=== PATIENT | male | born 1950 | race Caucasian/White ===

== ENCOUNTER 2025-10-09 11:17 | Observation (INO) ==
--- NOTE | 2025-09-01 09:53 | PAT Medication Instructions ---
Medication Instructions Date of Service September 01, 2025 Home Medications Medication Instructions Recorded acetaminophen 500 mg capsule 500 mg PO Q6H PRN pain 7 days #30 02/15/22 caps ipratropium 0.5 mg-albuterol 3 mg 3 ml inhalation Q6H PRN wheezing 12/12/24 (2.5 mg base)/3 mL nebulization #180 mL soln sildenafil 25 mg tablet 25 mg PO DAILY PRN sexual activity 08/24/25 #10 tabs acetaminophen 500 mg capsule 500 mg PO Q6H PRN pain aspirin 81 mg chewable tablet 81 mg PO QAM furosemide 40 mg tablet 40 mg PO DAILY PRN Fluid Retention ipratropium 0.5 mg-albuterol 3 mg (2.5 mg base)/3 mL nebulization soln 3 ml inhalation Q6H PRN wheezing cholecalciferol (vitamin D3) 50 mcg (2,000 unit) capsule 4,000 unit PO QAM metoprolol tartrate 25 mg tablet 25 mg PO QAM sildenafil 25 mg tablet 25 mg PO DAILY PRN sexual activity albuterol sulfate 90 mcg/actuation aerosol inhaler (Ventolin HFA) 1 - 2 puff inhalation UD PRN shortness of breath or wheezing atorvastatin 40 mg tablet 40 mg PO QAM omeprazole 20 mg capsule,delayed release 20 mg PO QAM umeclidinium 62.5 mcg-vilanterol 25 mcg/actuation powdr for inhalation (Anoro Ellipta) 1 inh inhalation QAM ASK your prescriber and surgeon aspirin 81 mg chewable tablet 81 mg PO QAM DO NOT take the morning of surgery furosemide 40 mg tablet 40 mg PO DAILY PRN Fluid Retention cholecalciferol (vitamin D3) 50 mcg (2,000 unit) capsule 4,000 unit PO QAM sildenafil 25 mg tablet 25 mg PO DAILY PRN sexual activity Take morning of surgery With a small sip of water, OTHERWISE NOTHING TO EAT OR DRINK AFTER MIDNIGHT: acetaminophen 500 mg capsule 500 mg PO Q6H PRN pain (if needed) ipratropium 0.5 mg-albuterol 3 mg (2.5 mg base)/3 mL nebulization soln 3 ml inhalation Q6H PRN wheezing (if needed) metoprolol tartrate 25 mg tablet 25 mg PO QAM albuterol sulfate 90 mcg/actuation aerosol inhaler (Ventolin HFA) 1 - 2 puff inhalation UD PRN shortness of breath or wheezing (use if needed; please bring rescue inhaler with you to hospital day of surgery if possible) atorvastatin 40 mg tablet 40 mg PO QAM omeprazole 20 mg capsule,delayed release 20 mg PO QAM umeclidinium 62.5 mcg-vilanterol 25 mcg/actuation powdr for inhalation (Anoro Ellipta) 1 inh inhalation QAM Take evening before surgery acetaminophen 500 mg capsule 500 mg PO Q6H PRN pain (if needed) furosemide 40 mg tablet 40 mg PO DAILY PRN Fluid Retention (if needed) ipratropium 0.5 mg-albuterol 3 mg (2.5 mg base)/3 mL nebulization soln 3 ml inhalation Q6H PRN wheezing (if needed) albuterol sulfate 90 mcg/actuation aerosol inhaler (Ventolin HFA) 1 - 2 puff inhalation UD PRN shortness of breath or wheezing (if needed) Other Notes If you have any questions please call us at [phone] or [phone] or [phone] or [phone]
--- NOTE | 2025-09-09 10:04 | Anesthesiology Consultation ---
Date of Service September 09, 2025 Assessment & Plan (1) Encounter for pre-operative examination: Plan - Case discussed in detail with Dr. Carrillo who advised patient is acceptable to proceed and nothing further is needed. - cardiology office visit 08/07/25: "...BP/pulse acceptable. EKG completed today has been personally reviewed and interpreted by myself. EKG reveals NSR, no acute ST changes. BB was advised to be reduced to Toprol XL 50 mg...wants to try Wegovy...denies any chest pain, pressure, tightness, heart rate has been much better controlled. Ran out of plavix recently, bruising and bleeding easily...chronic SOB with exertion unchanged...05/2025 zio monitor baseline NSR with average HR 60 bpm, rate PAC/PVCs noted, single episode SVT lasting 7 beats 4.4 seconds) with max HR 121 bpm, SVT appears irregular without clear P waves and may represent very brief episode of afib...03/2016 cath RRAA LVEF 55%...successful angioplasty and stenting of mid LAD w/MAYKEL via RRAA...paroxysmal atrial fibrillation s/p AF ablation 02/2025...recurrent falls s/p Watchman ASHLEY closure 05/2025...cardizem prn...avoid flecainide given hx of CAD...multivessel stenting RCA, LCX, LAD, last stent placed 2015, clinically stable with CCS class II DIAZ 2/2 COPD. No ischemia on NUC 04/2023...carotid disease-mild L ICA stenosis by 08/2024 doppler, will update doppler..." Patient states doppler has not yet been set-up. - Outpatient joint pathway: Per surgeon and patient, plan for outpatient joint program. Patient has well documented history of falls leading to Watchman device and d/c of anticoagulation by cardiology. He denies recent falls, but I am not comfortable with outpatient joint request given this history. I discussed this with patient and that I could further review with an anesthesiologist if he wanted, but he expresses he is comfortable with recommendation to remain overnight, denies questions or concerns. Surgeon's office and OR made aware. Chart Review Chart Review: Acceptable Risk for Surgery and Patient seen in Pre Admission Testing Teaching & Discussion Pre-Anesthesia Teaching/Discussion Notes: Instructed NPO after midnight before surgery, except medications with 15 cc of water. Medication instructions provided according to the PAT guidelines. History Surgery Operation Date: 10/09/25 13:00 Proposed Procedures p Right Reverse Total Shoulder Arthroplasty - Sunny Guardado DO Height/Weight Height: 5 ft 9 in Weight: 110.9 kg Allergies Allergy/AdvReac Type Severity Reaction Status Date / Time adhesive Allergy redness, Verified 09/01/25 08:53 irritation amoxicillin Allergy Rash Verified 09/01/25 08:21 metronidazole [From Flagyl] Allergy Rash Verified 09/01/25 08:53 Penicillins Allergy Rash Verified 09/01/25 08:21 Medications Home Medications Medication Instructions Recorded Confirmed Last Taken acetaminophen 500 mg capsule 500 mg PO Q6H PRN pain 7 days #30 02/15/22 09/01/25 Unknown caps aspirin 81 mg chewable tablet 81 mg PO QAM 03/12/24 09/01/25 Unknown furosemide 40 mg tablet 40 mg PO DAILY PRN Fluid Retention 09/18/24 09/01/25 Unknown ipratropium 0.5 mg-albuterol 3 mg 3 ml inhalation Q6H PRN wheezing 12/12/24 09/01/25 Unknown (2.5 mg base)/3 mL nebulization #180 mL soln cholecalciferol (vitamin D3) 50 4,000 unit PO QAM 05/28/25 09/01/25 Unknown mcg (2,000 unit) capsule metoprolol tartrate 25 mg tablet 25 mg PO QAM 05/28/25 09/01/25 Unknown sildenafil 25 mg tablet 25 mg PO DAILY PRN sexual activity 08/24/25 09/01/25 Unknown #10 tabs albuterol sulfate 90 mcg/actuation 1 - 2 puff inhalation UD PRN 09/01/25 09/01/25 Unknown aerosol inhaler (Ventolin HFA) shortness of breath or wheezing atorvastatin 40 mg tablet 40 mg PO QAM 09/01/25 09/01/25 Unknown omeprazole 20 mg capsule,delayed 20 mg PO QAM 09/01/25 09/01/25 Unknown release umeclidinium 62.5 mcg-vilanterol 1 inh inhalation QAM 09/01/25 09/01/25 Unknown 25 mcg/actuation powdr for inhalation (Anoro Ellipta) Past Medical History Medical History (Updated 09/09/25 @ 10:18 by Jyotsna Fonseca PA-C) At[facility] f[facility]u [facility] Cervical spinal stenosis spur on C5; no limits ROM Cervical spondylosis COPD (chronic obstructive pulmonary disease) controlled, stable per pt; inh/neb prn-last used several months ago Coronary artery disease Diastolic CHF hx GERD without esophagitis controlled, stable per pt History of BPH History of colon cancer dx 2023, "contained within 1 polyp which was removed" History of prostate cancer dx 2020, xrt 28 sessions HTN (hypertension) controlled, katy per pt Hx of coronary artery disease Lung nodules Noted on CT 01/07/20- Scattered nodules measuring up to 0.3cm; statistically benign. + smoking dependence. NSTEMI (non-ST elevated myocardial infarction) hx, 2000 Personal history of colonic polyps Presence of Watchman left atrial appendage closure device 05/2025, [facility]; f/u jimm[facility], [facility] Stage 3b chronic kidney disease hx Trigger thumb, right thumb Patient denies h/o stroke, seizures, DM, blood clots/DVTs or blood transfusions. Exercise / Class Metabolic Activity III < 4 Walking/Shop/Light housework (shortness of breath with usual activities ongoing for several years since [place] without change or worsening; denies chest discomfort) Past Family History Family History Mother Cardiac disorder Hypertension Sister Lavsxdq-Rnyix-Zzcvm disease Father Lung cancer Bone cancer Lymph node cancer Denies family history of Ovarian cancer Prostate cancer Breast cancer Colorectal cancer Past Surgical History Surgical History H/O prostate biopsy (06/02/20) History of appendectomy History of cardioversion 03/2024, [facility]ib, [facility] History of cataract surgery rt/lt History of colonoscopy (2024) History of esophagogastroduodenoscopy (EGD) History of [facility], [facility] of Watchman device Hx of thumb surgery (03/2019) L thumb fx repair Status post arthroscopy of shoulder rt. Status post cardiac catheterization 03/2001 and 06/2001, x1 stent each time, [facility] "sometime between 2000 and 2015," x1 stent, [facility] 2016, x1 stent, [facility] Status post knee surgery rt/lt knee arthroscopies Status post tonsillectomy Past Anesthesia History No Hx of Anesthesia Complications and No Family Hx of Anesthesia Complications History of PONV No Hx of PONV and No Hx of Motion Sickness Social History Smoking Status: Former smoker Do You Dip or Chew Tobacco: Yes (advised) Smoking End Date: 1994 Hx Alcohol Use: Yes Alcohol type: beer alcohol intake frequency: holidays/special occasions only Hx Substance Use: No substance use type: does not use Review of Systems Occasional snoring, denies witnessed apneas. Patient denies chest pain, fever, chills, cough, wheezing, or palpitations. Physical Exam Vital Signs Vitals BP 168/83 P 53 TEMP 98.5 SP02 97% on RA RESP 18 Physical Patient resting comfortably in chair in no acute distress, alert and oriented, responding appropriately throughout visit Full cervical extension range of motion without pain TMD 3 finger breadths Mallampati Score 3 Dentition: upper plate; denies chipped or loose teeth, caps/crowns, implants or bridges Lungs: normal respiratory effort. Good air movement, clear throughout to auscultation, no adventitious breath sounds Cardiac: regular rate and rhythm, no murmurs noted Carotid arteries: negative bruit bilat Lab Results Anesthesia Preop Results Results Anesthesia Widget: WBC 5.90 K/ul (4.8-10.8) 09/09/25 Hgb 12.8 g/dl (14.0-18.0) L 09/09/25 Hct 37.9 % (42.0-52.0) L 09/09/25 Plt 162 K/uL (130-400) 09/09/25 Na 138 mmol/L (136-145) 09/09/25 K 4.3 mmol/L (3.5-5.1) 09/09/25 Cl 103 mmol/L (98-107) 09/09/25 CO2 30 mmol/L (21-32) 09/09/25 BUN 18 mg/dl (6-23) 09/09/25 Creat 1.10 mg/dl (0.6-1.4) 09/09/25 Glucose Level 99 mg/dl (70-99(Fasting)) 09/09/25 PT 10.4 Seconds (9.0-12.0) 09/09/25 PTT 27 Seconds (21-31) 09/09/25 INR 1.0 (0.9-1.1) 09/09/25 Blood Type O Positive 09/09/25 Antibody Screen NEGATIVE 09/09/25 Testing Electrocardiogram Date: 08/07/25 Sinus bradycardia, rate 58 bpm RSR (v1) nondiagnostic Chest X-Ray Date: 12/08/24 No acute cardiopulmonary abnormality Echocardiogram Date: 05/15/25 ASHLEY free of thrombus; Watchman device well positioned and demonstrates stability; no color flow surrounding device suggestive of darling-device leak Mild aortic regurgitation Mild mitral regurgitation EF > 50% Normal size and wall thickness Iatrogenic ASD post procedure with L > R shunt Trace pericardial effusion 7-8 mm remained stable post procedure Stress Test Date: 04/09/23 No significant ischemia No significant infarction Low risk study LVEF 73% Other Testing Abdomen pelvis CT 05/11/25 Diffuse hepatic steatosis Bilateral perinephric fat stranding Colonic diverticulosis Diffuse circumferential wall thickening involving distal rectum and rectosigmoid junction with luminal narrowing and possible stricture; interval increase in length compared to previous scan Right anterior subcutaneous abdominal wall lymphadenopathy (15 mm) Anterior abdominal wall defect at umbilical level (1 cm) with herniation of omental fat, no bowel content Thorax CT 05/11/25 Ground-glass opacity nodule in right upper lobe Multiple small nodules in right middle, left lingular and bilateral lower lobes with associated fibro-atelectatic changes, suggestive of sequelae to old infective etiology Increase in size and number of nodules compared to previous report 08/07/[address] 02/24/25 No evidence of acute intrathoracic pathology 3 mm nodule seen in the left lung base No evidence of mediastinal or hilar lymphadenopathy No evidence of pulmonary thromboembolic disease
--- NOTE | 2025-10-08 09:52 | History & Physical Report ---
Date of Service October 08, 2025 Assessment & Plan (1) Rotator cuff arthropathy of right shoulder: We will proceed with a right reverse shoulder arthroplasty. Postoperatively, he will be placed in a sling and will be part of her outpatient joint protocol. He plans to go to [facility] physical therapy in [place] after discharge. History of Present Illness Chief Complaint: Cuff tear arthropathy the right shoulder. Primary Care Provider: Scarlet Wong DO Adilson is a pleasant 74-year-old male who has been dealing with chronic increasing right shoulder pain. He has a history of right shoulder arthroscopy done about 25 years ago. His shoulder has been much worse over the past couple of years and much worse recently. He presents to the office today for evaluation. He had injections of his shoulder with minimal relief. MRI showed signs of cuff tear arthropathy. After failing conservative treatment, he has elected proceed with a right reverse shoulder arthroplasty. Allergies Allergy/AdvReac Type Severity Reaction Status Date / Time adhesive Allergy redness, Verified 09/01/25 08:53 irritation amoxicillin Allergy Rash Verified 09/01/25 08:21 metronidazole [From Flagyl] Allergy Rash Verified 09/01/25 08:53 Penicillins Allergy Rash Verified 09/01/25 08:21 Home Medications Medication Instructions Recorded Confirmed Type acetaminophen 500 mg capsule 500 mg PO Q6H PRN pain 7 days #30 02/15/22 09/01/25 Rx caps aspirin 81 mg chewable tablet 81 mg PO QAM 03/12/24 09/01/25 History furosemide 40 mg tablet 40 mg PO DAILY PRN Fluid Retention 09/18/24 09/01/25 History ipratropium 0.5 mg-albuterol 3 mg 3 ml inhalation Q6H PRN wheezing 12/12/24 09/01/25 Rx (2.5 mg base)/3 mL nebulization #180 mL soln cholecalciferol (vitamin D3) 50 4,000 unit PO QAM 05/28/25 09/01/25 History mcg (2,000 unit) capsule metoprolol tartrate 25 mg tablet 25 mg PO QAM 05/28/25 09/01/25 History sildenafil 25 mg tablet 25 mg PO DAILY PRN sexual activity 08/24/25 09/01/25 Rx #10 tabs albuterol sulfate 90 mcg/actuation 1 - 2 puff inhalation UD PRN 09/01/25 09/01/25 History aerosol inhaler (Ventolin HFA) shortness of breath or wheezing atorvastatin 40 mg tablet 40 mg PO QAM 09/01/25 09/01/25 History omeprazole 20 mg capsule,delayed 20 mg PO QAM 09/01/25 09/01/25 History release umeclidinium 62.5 mcg-vilanterol 1 inh inhalation QAM 09/01/25 09/01/25 History 25 mcg/actuation powdr for inhalation (Anoro Ellipta) Past Med/Surg History Problem List Encounter for pre-operative examination Rotator cuff arthropathy of right shoulder Obesity, Class II, BMI 35-39.9 Presence of Watchman left atrial appendage closure device (05/2025) Impingement syndrome of right shoulder Impingement syndrome of left shoulder Adenocarcinoma, colon (07/2024) History of prostate cancer Atrial fibrillation Stage 3b chronic kidney disease Diastolic CHF Medial meniscus tear Lung nodules Noted on CT 01/07/20- Scattered nodules measuring up to 0.3cm; statistically benign. + smoking dependence. Cervical spondylosis Cervical spinal stenosis Prostate cancer Personal history of colonic polyps Hypertension History of heart attack GERD without esophagitis COPD (chronic obstructive pulmonary disease) BPH (benign prostatic hyperplasia) Arthritis Medical History Stage 3b chronic kidney disease hx Lung nodules Noted on CT 01/07/20- Scattered nodules measuring up to 0.3cm; statistically benign. + smoking dependence. History of BPH Atrial fibrillation [facility] ; f[facility]u [facility] Coronary artery disease Personal history of colonic polyps HTN (hypertension) controlled, katy per pt Diastolic CHF hx Hx of coronary artery disease GERD without esophagitis controlled, stable per pt COPD (chronic obstructive pulmonary disease) controlled, stable per pt; inh/neb prn-last used several months ago Cervical spinal stenosis spur on C5; no limits ROM Cervical spondylosis History of colon cancer dx 2023, "contained within 1 polyp which was removed" History of prostate cancer dx 2020, xrt 28 sessions Presence of Watchman left atrial appendage [facility]; f[facility]u [facility] NSTEMI (non-ST elevated myocardial infarction) hx, 2000 Trigger thumb, right thumb Surgical History History of heart surgery 05/2025, [facility], placement of Watchman device History of esophagogastroduodenoscopy (EGD) History of colonoscopy (2024) History of cardioversion 03/2024, re Afib, , [facility] early 2024?, [facility] H/O prostate biopsy (06/02/20) Hx of thumb surgery (03/2019) L thumb fx repair Status post tonsillectomy Status post arthroscopy of shoulder rt. Status post knee surgery rt/lt knee arthroscopies History of cataract surgery rt/lt Status post cardiac catheterization 03/2001 and 06/2001, x1 stent each time, [facility] "sometime between 2000 and 2015," x1 stent, [facility] 2015, x1 stent, [facility] History of appendectomy Family History Mother Cardiac disorder Hypertension Sister Bmixqix-Dplzi-Nzhoi disease Father Lung cancer Bone cancer Lymph node cancer Denies family history of Ovarian cancer Prostate cancer Breast cancer Colorectal cancer Social History Smoking Status: Former smoker Tobacco Type: Smokeless Tobacco (Dip or Chew) Age Started Using Tobacco: 5; Age Quit Using Tobacco: 56; packs per day: 1.5; Second Hand Exposure: Yes (hx, many years ago); Do You Dip or Chew Tobacco: Yes (advised); Hx Alcohol Use: Yes Alcohol type: beer Alcohol Intake Frequency: 2-3 x/Week Hx Substance Use: No Preferred Language: Georgian Communication Ability: Effective Visual Impairment: No Limitations Hearing Ability: Use of Hearing Aid Burr Bench Operator Required: No Beliefs That Will Affect Care: None marital status: Current Living Situation: Spouse current occupational status: retired Feels Safe at Home: Yes Childhood Exposure to Second-Hand Smoke: No Diet Comment: regular caffeine: Yes (coffee) during the past year weight has: decreased > 10 lbs Dental Care, Regularly: Yes Physical Activity Frequency: 3-4 Times per Week Physical Activity Frequency Comment: occasional Seatbelt Use: always Sunscreen Use: No Assistive Devices: Contacts, Denture - Upper, Glasses, Hearing Aid - Bilateral and Nebulizer Review of Systems All systems reviewed & are unremarkable except as noted in HPI & below. Physical Exam On physical exam of the right shoulder, he has decreased range of motion and weakness throughout. Pain over the glenohumeral joint line.. Constitutional WD/WN, vitals as above Eyes PERRL, conjunctivae normal, anicteric sclerae ENMT external ear and nose normal, oropharynx normal Neck trachea midline, no thyromegaly Respiratory normal respiratory effort Cardiovascular RRR, no murmur, no edema Gastrointestinal (Abdomen) normal bowel sounds, soft, nontender, no hepatosplenomegaly Psychiatric A+Ox3, euthymic affect Results & Data Results & Data Laboratory Results . Diagnostic Findings . PG Care Time/CCT Total # of Minutes Spent Total Time Spent with Patient: Total time spent is greater than 50% in coordination of care (as documented) at patient's floor/unit and/or counseling patient: Coding Level of Care Code None Diagnoses Rotator cuff arthropathy of right shoulder M12.811
[~2025-10-09 11:17] MED LIST: BUPIVACAINE 0.5 % 5 MG/1 ML PF 10ML VIAL ONE; LIDOCAINE 2% 2 ML VIAL/AMP(20MG/ML) INFIL ONE; MIDAZOLAM HCL 1 MG/ML 2ML VIAL ONE
[2025-10-09] MEDS ORDERED: LIDOCAINE 2% 2 ML VIAL/AMP(20MG/ML) INFIL ONE (11:46)
[2025-10-09] MEDS ORDERED: PROPOFOL IV EMULSION 10 MG/ML 20 ML VIAL IV ONE (11:46)
[2025-10-09] MEDS ORDERED: ONDANSETRON INJ 2 MG/ML 2 ML VIAL ONE (11:46)
[2025-10-09] MEDS: LR 15ML/HR IV SCH (11:49)
[2025-10-09] MEDS: dexAMETHasone**PF** 10 MG/ML VIAL IV SCH (12:15)
[2025-10-09] MEDS: FAMOTIDINE 20 MG TAB PO SCH (12:15)
[2025-10-09] MEDS: LR 60ML/HR IV SCH (12:16)
[2025-10-09] MEDS: ACETAMINOPHEN 500 MG TAB PO SCH ×2 (12:16→17:04)
[2025-10-09] MEDS: GABAPENTIN 300 MG CAP PO SCH (12:16)
--- NOTE | 2025-10-09 12:18 | History & Physical Bridge Note ---
Date of Service October 09, 2025 History & Physical Bridge Note I have examined the patient, reviewed the History & Physical and in the interval since the performance of the History & Physical I have noted the following changes of clinical significance: no changes noted
[2025-10-09] MEDS ORDERED: ONDANSETRON INJ 2 MG/ML 2 ML VIAL IV PRN ×2 (12:41→16:02)
[2025-10-09] MEDS ORDERED: ATROPINE SULFATE 0.1 MG/ML 10ML SYR IV PRN (12:41)
[2025-10-09] MEDS: TRANEXAMIC ACID 1,000 MG **IV Pre-op IV SCH (12:54)
[2025-10-09] MEDS: ROPIV 0.5% 246mg, Ketorolac 30mg, EPINEPHrine 0.5mg in NSS INFIL SCH (13:45)
[2025-10-09] MEDS: ORTHO JOINT ANESTHETIC ONE (13:46)
--- NOTE | 2025-10-09 14:21 | Operative Report ---
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 A tenodesis was opted. This was a separate and distinct portion of the procedure. For these reasons, a CPT code modifier 59 will be added to this case. Implants used: I used a [employer] Comprehensive reverse total shoulder arthroplasty system with a size 15 press fit micro humeral stem, a +5 thickness humeral tray and a +3 retentive humeral bearing, a 25 mm small augment baseplate with a 6.5 mm central screw and superior and inferior locking screws, and a size 36 mm eccentric glenosphere. Adilson arrived at [facility] for the above procedure. He was seen in the preoperative holding area and the operative extremity was identified and signed. He was given a preoperative antibiotic, TXA, and an interscalene nerve block. He was taken back to the operating room, laid on table in supine position, and put under general anesthesia. He was then put into the beachchair position. The shoulder was then prepped and draped in sterile fashion. A timeout was done and the patient and the operative extremity was properly id entified. A deltopectoral approach was used. Dissection was taken down through the fascia and the deltoid was retracted laterally and the conjoined tendon was retracted medially. The anterior shoulder was exposed. The biceps groove was opened up and the biceps tendon was examined extensively. The biceps tendon demonstrated enlargement and inflammatory changes consistent with longstanding inflammation in the context of osteoarthritis and cuff arthropathy. The long head of the biceps tendon was then tenodesed to the upper border of the pectoralis major. This was a separate and distinct portion of the procedure. The subscapularis was then directly released off the lesser tuberosity with a peel technique. The inferior capsule was released and the humeral head was dislocated. A canal finding reamer was sent down the center of the humeral canal. Sequential reaming up to a size 14 reamer was done. Off that reamer, a proximal humeral resection guide was placed. The proximal humerus was resected at 135 of inclination and 25 of retroversion. Osteophytes were then removed and the glenoid was exposed. Time was spent doing a complete capsular and labral release. The glenoid guide was then placed in the inferior aspect of the glenoid. A 3.2 mm Steinmann pin was then placed into the glenoid vault at 10 of inclination. The glenoid baseplate was then reamed. The final size 25 mm small augment baseplate was then impacted in the place. A 6.5 mm central screw was then placed followed by superior and inferior locking screws. A 36 mm eccentric glenosphere was then impacted into place. Surrounding soft tissues were then injected with 100 cc an orthopedic pain control cocktail. The proximal humerus was then exposed. Sequential broaching of the humerus up to a size 14 broach was done. Off that broach a +5 thickness and +3 retentive humeral tray was trialed. The shoulder was then reduced, brought through a full range of motion, and felt to be stable. The shoulder was then dislocated and the broach was removed. The final size 14 micro press-fit humeral stem was then impacted into place. A +3 retentive humeral bearing was then snapped onto a +5 thickness hum eral tray. The humeral tray was then impacted onto the humeral stem. The shoulder was once again reduced, brought through a full range of motion, and felt to be stable. The subscapularis was repaired back to the lesser tuberosity using transosseous FiberWire sutures. An Irrisept lavage was then done for 3 minutes. The joint was then irrigated with normal saline solution. Hemostasis was obtained. The interval was closed with 2-0 Vicryl suture. The skin was then closed with 2-0 Vicryl and daina. A Silverlon dressing was placed and the arm was rested in a regular arm sling. He was then extubated and transferred to a hospital bed. He taken to the postanesthesia care unit in stable condition. He tolerated the procedure well. Altaf Nails PA-C, was present for the entire procedure. He was critical for patient positioning, prepping, draping, retraction exposure, wound closure and application of sterile dressing. I attest to the content of the Intraoperative Record and any orders documented therein. Any exceptions are noted below.
--- NOTE | 2025-10-09 15:19 | XRay Report ---
XR shoulder RT min 2V routine HISTORY: 74 years-old Male Post shoulder surgery . Right shoulder pain COMPARISON: 03/11/2025 TECHNIQUE: 2 views of the right shoulder FINDINGS: Reverse right shoulder arthroplasty with satisfactory alignment. Expected postoperative soft tissue s welling with deep tissue air. Moderate degeneration of the right AC joint. Right pleural effusion wit h atelectasis. IMPRESSION: Satisfactory alignment of the right shoulder arthroplasty. ACT 112: Negative or not required by law. The above report was generated using voice recognition software. It may contain grammatical, syntax o r spelling errors. Electronically signed by: Osbaldo Estrella M.D. 10/09/2025 3:18 PM
--- NOTE | 2025-10-09 15:53 | Anesthesiology Progress Note ---
Date of Service October 09, 2025 Anesthesia Post Procedure Vital Signs Vital Signs: Temp Pulse Resp BP BP Pulse Ox O2 Del Method 10/09/25 15:25 72 20 139/76 96 Room Air 10/09/25 15:15 36.5 C 68 20 153/90 H 96 Room Air 10/09/25 15:05 62 17 137/77 98 Room Air 10/09/25 14:55 61 17 129/78 100 Oxymask 10/09/25 14:45 36.0 C L 77 12 160/99 H 96 Oxymask 10/09/25 11:41 36.7 C 53 L 18 136/90 98 Room Air O2 Flow Rate 10/09/25 15:25 10/09/25 15:15 10/09/25 15:05 10/09/25 14:55 7 10/09/25 14:45 7 10/09/25 11:41 Pain Intensity Right Shoulder: Pain Intensity: 5 Transfer of Care Handoff Completed per policy Notes Mental Status: alert / awake / arousable and participated in evaluation Patient Amnestic to Procedure: Yes Nausea / Vomiting: adequately controlled Pain: adequately controlled Airway Patency, RR, SpO2: stable & adequate BP & HR: stable & adequate Hydration State: stable & adequate Anesthetic Complications: no major complications apparent
[2025-10-09] MEDS ORDERED: diphenhydrAMINE Capsule 25 MG CAP PO PRN (16:02)
[2025-10-09] MEDS ORDERED: ALBUTEROL HFA 8 GM INHALER INH PRN (16:02)
[2025-10-09] MEDS ORDERED: ALUMINUM/MAGNESIUM SUSP 30 ML UDC PO PRN (16:02)
[2025-10-09] MEDS ORDERED: MAGNESIUM HYDROXIDE SUSP 30 ML UDC PO PRN (16:02)
[2025-10-09] MEDS ORDERED: FUROSEMIDE 40 MG TAB PO PRN (16:02)
[2025-10-09] MEDS ORDERED: NALOXONE HCL 0.4 MG/1 ML VIAL/CARP IV PRN (16:02)
[2025-10-09] MEDS ORDERED: METOCLOPRAMIDE HCL INJ 5 MG/ML 2 ML VIAL IV PRN (16:02)
[2025-10-09] MEDS: SODIUM CHLORIDE 0.9% 1,000 ML IV SCH (16:30)
[2025-10-09] MEDS: BUPIVACAINE LIPOSOME 1.3% 133 MG/10 ML VIAL ONE (17:18)
[2025-10-09] MEDS: KETOROLAC TROMETHAMINE 15 MG/ML VIAL IV SCH (18:37)
[2025-10-09] MEDS: DOCUSATE SODIUM 100 MG CAP PO SCH (20:27)
[2025-10-09] MEDS: SENNA 8.6 MG TAB PO SCH (20:27)
[2025-10-09] MEDS: ASPIRIN 81 MG ECTAB PO SCH (20:28)
[2025-10-10 08:15] VITALS: BP 128/74; PULSE 73; RESP 16; TEMP 97.5
--- NOTE | 2025-10-10 08:38 | Orthopedic Progress Note ---
Date of Service October 10, 2025 Assessment & Plan (1) Status post reverse total arthroplasty of right shoulder: * Continue Current Treatment * Disposition: home * Daily treatment: Physical Therapy/ Occupational Therapy per protocol * Weight bearing status: NWB RUE * Continue to monitor for ABLA * Pain control * Office/hospital f/u 2 weeks for progress check and staple/suture removal * Plan for discharge today pending PT/OT clearance Subjective .Active Problems: S/p right rTSA POD 1 74 y/o male s/p R rTSA. Doing well overall, pain managed and improved function. Some residual numbness and weakness of radial nerve distribution. Denies fever/chills, chest pain/SOB, nausea/vomiting. Otherwise no complaints. Review of Systems All systems reviewed & are unremarkable except as noted in HPI & below. Physical Exam .General: Alert and oriented, no acute distress * Constitutional: well-developed, well-nourished. * Respiratory: Normal respiratory effort, no distress * Gastrointestinal: No tenderness to palpation, no rigidity or guarding. * Skin: No rash or lesion. * Neurologic: Grossly normal * Musculoskeletal: right shoulder surgical dressing CDI, not removed for exam. Otherwise no obvious deformity or overlying skin changes. Diffuse TTP upper arm and shoulder region. Otherwise no specific tenderness of upper arm, elbow, forearm, wrist/hand. AROM shoulder not assessed. AROM elbow, wrist/hand intact. Sensation intact radial/median/ulnar nerve distributions. Brisk capillary refill. Results & Data Results & Data Laboratory Results . Diagnostic Findings . Shoulder X-Ray 10/09/25 14:03 XR shoulder RT min 2V routine HISTORY: 74 years-old Male Post shoulder surgery . Right shoulder pain COMPARISON: 03/11/2025 TECHNIQUE: 2 views of the right shoulder FINDINGS: Reverse right shoulder arthroplasty with satisfactory alignment. Expected postoperative soft tissue swelling with deep tissue air. Moderate degeneration of the right AC joint. Right pleural effusion with atelectasis. IMPRESSION: Satisfactory alignment of the right shoulder arthroplasty. ACT 112: Negative or not required by law. The above report was generated using voice recognition software. It may contain grammatical, syntax or spelling errors. Electronically signed by: Osbaldo Estrella M.D. 10/09/2025 3:18 PM PG Care Time/CCT Total # of Minutes Spent Total Time Spent with Patient: Total time spent is greater than 50% in coordination of care (as documented) at patient's floor/unit and/or counseling patient: Coding Level of Care Code 91214 Post Operative Follow-Up Diagnoses Status post reverse total arthroplasty of right shoulder Z96.611
[2025-10-10] MEDS: ATORVASTATIN 40 MG TAB PO SCH (08:47)
[2025-10-10] MEDS: CHOLECALCIFEROL 25 MCG (1000 UNITS) TAB PO SCH (08:48)
[2025-10-10] MEDS: MULTIVITAMIN TAB PO SCH (08:48)
[2025-10-10] MEDS: METOPROLOL TARTRATE 25 MG TAB PO SCH (08:49)
[2025-10-10] MEDS: UMECLIDINIUM/VILANTEROL 62.5/25MCG 7 PUFFS/INHALER INH SCH (08:51)
[2025-10-10 14:05] VITALS: O2SAT 93
== END 2025-10-10 13:34 | disposition home or self-care (01) ==
LOC: 3E 11:17 → ASU 11:17